=== PATIENT | female | born 1950 | race Caucasian/White ===

== ENCOUNTER → 2017-11-24 | Outpatient (CLI) | payer OTHER | END | disposition home or self-care (01) | LOC: CRE 13:08 | DX: I25.10 Atherosclerotic heart disease of native coronary artery without angina pectoris (principal); Z95.5 Presence of coronary angioplasty implant and graft | CPT/HCPCS: 93797 ==

== ENCOUNTER 2018-02-12 08:04 | Emergency (ER) | payer OTHER | END 2018-02-12 10:13 | disposition home or self-care (01) | LOC: FTE 08:04 | DX: S89.92XA Unspecified injury of left lower leg, initial encounter (principal); I25.10 Atherosclerotic heart disease of native coronary artery without angina pectoris; W22.8XXA Striking against or struck by other objects, initial encounter; Y92.9 Unspecified place or not applicable | CPT/HCPCS: 73590; 93971; 99284-25 ==

== ENCOUNTER 2018-02-15 06:19 | Day surgery (SDC) | payer OTHER ==
[2018-02-15] MEDS ORDERED: PROPOFOL 40 ML (08:58)
[2018-02-15] MEDS ORDERED: LIDOCAINE 100 MG SYRINGE (08:59)
== END 2018-02-15 10:48 | disposition home or self-care (01) ==
LOC: GIL 06:19
DX: Z12.11 Encounter for screening for malignant neoplasm of colon (principal); D12.0 Benign neoplasm of cecum; I10 Essential (primary) hypertension; E78.5 Hyperlipidemia, unspecified; I25.10 Atherosclerotic heart disease of native coronary artery without angina pectoris
CPT/HCPCS: 44389; 88305